=== PATIENT | male | born 1970 | race Caucasian/White ===

== ENCOUNTER 2017-05-25 18:56 | Emergency (ER) | payer OTHER ==
[2017-05-25] MEDS: PIPER-TAZO 2.25 GM (PMX) 50 ML IVPB (22:08)
[2017-05-25] MEDS: VANCOMYCIN 1 GM (PMX) 250 ML IVPB (22:29)
== END 2017-05-26 01:24 | disposition home or self-care (01) ==
LOC: FTE 05-26 01:24
DX: L02.414 Cutaneous abscess of left upper limb (principal); L03.114 Cellulitis of left upper limb; F17.210 Nicotine dependence, cigarettes, uncomplicated
CPT/HCPCS: 96374; 96375; 99284-25

== ENCOUNTER 2017-09-15 16:06 | Emergency (ER) | payer OTHER ==
[2017-09-15] MEDS: HYDROCODONE/APAP (5/325) TAB PO (18:10)
[2017-09-15 18:56] LABS: ADD UMIC NO; UR ASCORBIC ACID 40 mg/dL (NEGATIVE); UR BILIRUBIN (Dip) NEGATIVE (NEGATIVE); UR BLOOD (Dip) NEGATIVE (NEGATIVE); UR CLARITY CLEAR (CLEAR); UR COLOR YELLOW (YELLOW); UR GLUCOSE (Dip) NEGATIVE (NEGATIVE); UR KETONES (Dip) NEGATIVE (NEGATIVE); UR LEUKOCYTE ESTERASE (Dip) NEGATIVE Leu/ul (NEGATIVE); UR NITRITE (Dip) NEGATIVE (NEGATIVE); UR SPECIFIC GRAVITY (Dip) 1.019 (1.003-1.030); UR TOTAL PROTEIN (Dip) NEGATIVE (NEGATIVE); UR UROBILINOGEN (Dip) NEGATIVE (NEGATIVE)
== END 2017-09-15 19:45 | disposition home or self-care (01) ==
LOC: FTE 16:06
DX: N50.812 Left testicular pain (principal); Z87.891 Personal history of nicotine dependence
CPT/HCPCS: 76870; 81003; 87591; 99284-25

== ENCOUNTER 2017-11-03 23:12 | Emergency (ER) | payer OTHER ==
[2017-11-04] MEDS: ONDANSETRON (ODT) 4 MG TAB ODT (01:30)
[2017-11-04] MEDS: ACET/BUTAL/CAFF TAB PO (01:31)
[2017-11-04] MEDS: HYDROCODONE/APAP (5/325) TAB PO (03:17)
== END 2017-11-04 04:44 | disposition home or self-care (01) ==
LOC: FTE 23:12
DX: R51 Headache (principal); F17.210 Nicotine dependence, cigarettes, uncomplicated
CPT/HCPCS: 70450; 99284-25

== ENCOUNTER 2018-11-01 17:22 | Emergency (ER) | payer SELFPAY, OTHER | END 2018-11-01 19:56 | disposition home or self-care (01) | LOC: FTE 17:22 | DX: S30.853A Superficial foreign body of scrotum and testes, initial encounter (principal); X58.XXXA Exposure to other specified factors, initial encounter; Y92.9 Unspecified place or not applicable | CPT/HCPCS: 72170; 76870; 99284-25 ==